=== PATIENT | male | born 1965 | race Caucasian/White ===

== ENCOUNTER 2023-04-15 06:15 | Day surgery (SDC) | payer BC ==
[~2023-04-15 06:15] MED LIST: Lactated Ringers 1,000 ML IV SCH; Midazolam 1 MG/ML 2 ML SDV ONE; Morphine 8 MG, EPINEPHrine 0.3 MG, Cefuroxime 750 MG, Ketorolac 30 MG, Sodium Chloride ... PRN; Propofol 200 MG/20 ML SDV ONE; Sodium Chloride 0.9% 10 ML Syringe FLUSH PRN; Sodium Chloride 0.9% 10 ML Syringe FLUSH SCH; fentaNYL 100 MCG/2 ML SDV ONE
[2023-04-15] MEDS ORDERED: Phenylephrine 1% 10 MG/ML SDV ONE (06:19)
[2023-04-15] MEDS ORDERED: Tranexamic Acid 1,000 MG/10 ML Vial ONE (06:37)
[2023-04-15] MEDS ORDERED: Pregabalin 25 MG Cap PO ONE (06:48)
[2023-04-15] MEDS ORDERED: Acetaminophen 325 MG Tab PO ONE (06:48)
[2023-04-15] MEDS ORDERED: oxyCODONE ER 10 MG TAB.ER PO ONE (06:48)
[2023-04-15] MEDS ORDERED: ceFAZolin 2 GM Vial ONE (07:01)
[2023-04-15] MEDS ORDERED: Propofol 200 MG/20 ML SDV ONE ×2 (07:34→07:57)
[2023-04-15] MEDS ORDERED: Ondansetron 4 MG/2 ML SDV ONE (08:09)
[2023-04-15] MEDS: Vancomycin 1 GM SDV ONE ×2 (08:23→13:49)
[2023-04-15] MEDS ORDERED: oxyCODONE 5 MG Tab PO PRN (10:57)
== END 2023-04-15 12:30 | disposition home or self-care (01) ==
LOC: JD.SDS 06:15
PROVIDERS: ATTEND Orthopaedic Surgery
DX: M16.11 Unilateral primary osteoarthritis, right hip (principal); Z79.899 Other long term (current) drug therapy
CPT/HCPCS: 0055T; 27130; 36415; 73501; 86850; 86900; 86901; 97116; 97161; A9270; C1713; C1776; J0171; J0690; J0697; J1885; J2250; J2270; J2371; J2405; J2704; J3010; J3370; J7030; J7120; J3490